=== PATIENT | female | born 1990 | race Caucasian/White ===

== ENCOUNTER 2021-06-05 21:36 | Emergency (ER) | payer BC ==
--- OUTSIDE RECORDS SUMMARY | 2021-06-05 21:38 | XMS REPORT | Continuity of Care Document ---
:1990 Author Organization [facility] Address [address] [place] [address] [address] [place] [address] Care Team Providers Name Role Phone MYLES Attending Clinician Unavailable Problems This patient has no known problems. Allergies, Adverse Reactions, Alerts This patient has no known allergies or adverse reactions. Medications This patient has no known medications. Procedures This patient has no known procedures. Encounters Start End Encounter Admission Attending Care Care Encounter Source Date/Time Date/Time Type Type Clinicians Facility Department ID 2019-07-11 2019-07-11 Outpatient [facility] [id number] [address] [place] 00:00:00 00:00:00 [place] [address] 2019-07-09 2019-07-09 Outpatient [facility] [id number] [place] 00:00:00 00:00:00 [place] [address] 2019-07-09 2019-07-09 Outpatient [facility] [id number] [place] 00:00:00 00:00:00 [place] [address] 2019-06-25 2019-06-25 Outpatient [facility] [id number] [place] 00:00:00 00:00:00 [place] [address] 2019-06-25 2019-06-25 Outpatient [facility] [id number] [place] 00:00:00 00:00:00 [place] [address] Results This patient has no known results.
--- NOTE | 2021-06-05 22:46 | ER ---
Nurse's Notes [facility] Name: Merline Gonzales Age: 31 yrs Sex: Female : 1990 Arrival Date: 06/05/2021 Time: 21:39 Bed 12 Private MD: Diagnosis: Sprain of unspecified ligament of left ankle Presentation: 06/05 21:54 Chief complaint: Patient states: "My kids were throwing punches and I took off running ab2 after them and I didnt see a hole in the yard and rolled my ankle." Pt c/o left ankle pain. Coronavirus screen: Vaccine status: Patient reports being unvaccinated. Client denies travel out of the [place] in the last 14 days. At this time, the client does not indicate any symptoms associated with coronavirus-19. Ebola Screen: Patient negative for fever greater than or equal to 101.5 degrees Fahrenheit, and additional compatible Ebola Virus Disease symptoms Patient denies exposure to infectious person. Patient denies travel to an Ebola-affected area in the 21 days before illness onset. No symptoms or risks identified at this time. Initial Sepsis Screen: Does the patient meet any 2 criteria? No. Patient's initial sepsis screen is negative. Does the patient have a suspected source of infection? No. Patient's initial sepsis screen is negative. Risk Assessment: Do you want to hurt yourself or someone else? Patient reports no desire to harm self or others. Onset of symptoms is unknown. 21:54 Method Of Arrival: Wheelchair ab2 21:54 Acuity: ROBE 4 ab2 Triage Assessment: 21:56 General: Appears in no apparent distress. uncomfortable, Behavior is calm, cooperative, ab2 appropriate for age. Pain: Complains of pain in left lateral ankle Pain currently is 9 out of 10 on a pain scale. Neuro: Level of Consciousness is awake, alert, obeys commands, Oriented to person, place, time, situation, Appropriate for age Vault Custodian are equal bilaterally Moves all extremities. Speech is normal. Cardiovascular: No deficits noted. Denies chest pain, shortness of breath, Patient's skin is warm and dry. Respiratory: Airway is patent Respiratory effort is even, unlabored, Respiratory pattern is regular, symmetrical. GI: No deficits noted. No signs and/or symptoms were reported involving the gastrointestinal system. Musculoskeletal: Reports pain in left foot and left lateral ankle. Injury Description: Pt stepped in a hole and rolled her ankle. Historical: - Allergies: 21:56 PENICILLINS; ab2 - PMHx: 21:56 None; ab2 - PSHx: 21:56 None; ab2 - Immunization history:: Adult Immunizations up to date. - Social history:: Smoking status: Patient denies any tobacco usage or history of. Screenin:57 Abuse screen: Denies threats or abuse. Denies injuries from another. Nutritional ab2 screening: No deficits noted. Tuberculosis screening: No symptoms or risk factors identified. Fall Risk None identified. Assessment: 22:40 General: Appears in no apparent distress. Behavior is appropriate for age. Pain: lp1 Complains of pain in left lateral ankle Pain currently is 6 out of 10 on a pain scale. Quality of pain is described as aching. Neuro: Level of Consciousness is awake, alert, obeys commands. Cardiovascular: Patient's skin is warm and dry. Respiratory: Respiratory effort is even, unlabored. GI: No signs and/or symptoms were reported involving the gastrointestinal system. : No signs and/or symptoms were reported regarding the genitourinary system. EENT: No signs and/or symptoms were reported regarding the EENT system. Derm: Skin is pink, warm \\T\\ dry. Musculoskeletal: Circulation, motion, and sensation intact. Range of motion: limited in left ankle. 23:20 Reassessment: Splint assessed by Santhosh Orozco NP. lp1 Vital Signs: 21:54 BP 138 / 96; Pulse 88; Resp 16; Temp 97.7(TE); Pulse Ox 99% on R/A; Weight 49.9 kg; ab2 Height 5 ft. 2 in. (157.48 cm); Pain 9/10; 21:54 Body Mass Index 20.12 (49.90 kg, 157.48 cm) ab2 ED Course: 21:39 Patient arrived in ED. jj6 21:49 Santhosh Orozco NP is PHCP. pm1 21:49 Aniceto Cosme DO is Attending Physician. pm1 21:56 Triage completed. ab2 21:57 Arm band placed on right wrist. ab2 22:24 XRAY Ankle LEFT 3 view In Process Unspecified. EDMS 22:40 Naomi Dominguez, RN is Primary Nurse. lp1 22:40 Patient did not have IV access during this emergency room visit. lp1 22:41 Patient has correct armband on for positive identification. lp1 23:20 No provider procedures requiring assistance completed. lp1 Administered Medications: No medications were administered Outcome: 22:45 Discharge ordered by MD. pm1 23:15 Discharged to home via wheelchair, with significant other. lp1 23:15 Condition: good 23:15 Discharge instructions given to patient, Instructed on discharge instructions, follow up and referral plans. Demonstrated understanding of instructions, follow-up care, splint care. 23:29 Patient left the ED. lp1 Signatures: Dispatcher [employer] EDMS Naomi Dominguez, RN RN lp1 Santhosh Orozco, [employer]ATION MANAGER pm1 Poppy [id number] Carloz Perez
--- NOTE | 2021-06-05 22:46 | EDPHYS ---
Physician Documentation [facility] Name: Merline Gonzales Age: 31 yrs Sex: Female : 1990 Arrival Date: 06/05/2021 Time: 21:39 Bed 12 Private MD: ED Physician Aniceto Cosme HPI: 06/05 22:04 This 31 yrs old Female presents to ER via Wheelchair with complaints of Ankle Injury, pm1 Ankle Swelling. 22:04 The patient presents with pain, that is acute. The complaints affect the left ankle. pm1 Onset: The symptoms/episode began/occurred just prior to arrival. Context: The problem was sustained outdoors, resulted from Stepping in hole. Associated signs and symptoms: Pertinent positives: swelling, Pertinent negatives: numbness, tingling. Modifying factors: The symptoms are alleviated by elevation of extremity, the symptoms are aggravated by weight bearing, movement. Severity of symptoms: in the emergency department the symptoms are unchanged, patient took hydrocodone at home. The patient has not experienced similar symptoms in the past. The patient has not recently seen a physician. Historical: - Allergies: 21:56 PENICILLINS; ab2 - PMHx: 21:56 None; ab2 - PSHx: 21:56 None; ab2 - Immunization history:: Adult Immunizations up to date. - Social history:: Smoking status: Patient denies any tobacco usage or history of. ROS: 22:04 Constitutional: Negative for fever, chills, and weight loss, Cardiovascular: Negative pm1 for chest pain, palpitations, and edema, Respiratory: Negative for shortness of breath, cough, wheezing, and pleuritic chest pain. 22:04 Skin: Negative for injury, rash, and discoloration, Neuro: Negative for headache, weakness, numbness, tingling, and seizure. 22:04 MS/extremity: Positive for pain, swelling, tenderness, of the left lateral ankle. 22:04 All other systems are negative. Exam: 22:04 Constitutional: This is a well developed, well nourished patient who is awake, alert, pm1 and in no acute distress. Head/Face: Normocephalic, atraumatic. 22:04 Skin: Warm, dry with normal turgor. Normal color with no rashes, no lesions, and no evidence of cellulitis. 22:04 Cardiovascular: Exam negative for acute changes, Rate: normal, Rhythm: regular, Pulses: no pulse deficits are appreciated. 22:04 Respiratory: Exam negative for acute changes, respiratory distress, shortness of breath, Breath sounds: are clear throughout. 22:04 Musculoskeletal/extremity: Extremities: grossly normal except: noted in the left lateral ankle: swelling, tenderness, There is no evidence of deformity, Circulation is intact in all extremities. Pulses: noted to be 2+ in the left dorsalis pedis artery, the left foot Vital Signs: 21:54 BP 138 / 96; Pulse 88; Resp 16; Temp 97.7(TE); Pulse Ox 99% on R/A; Weight 49.9 kg; ab2 Height 5 ft. 2 in. (157.48 cm); Pain 9/10; 21:54 Body Mass Index 20.12 (49.90 kg, 157.48 cm) ab2 MDM: 22:09 Patient medically screened. pm1 22:45 Data reviewed: vital signs. Data interpreted: Pulse oximetry: on room air is 99 %. pm1 Interpretation: normal. Counseling: I had a detailed discussion with the patient and/or guardian regarding: the historical points, exam findings, and any diagnostic results supporting the discharge/admit diagnosis, radiology results, the need for outpatient follow up, a orthopedic surgeon, to return to the emergency department if symptoms worsen or persist or if there are any questions or concerns that arise at home. 22:47 ED course: No pain prescription discharged with the patient because she has multiple pm1 pills of Kimper at home from prior surgery. Patient recently reports right shoulder surgery and took Kimper for her pain today prior to arrival. 06/05 22:00 Order name: XRAY Ankle LEFT 3 view ab2 06/05 22:45 Order name: Splint - Ankle: Orthoglass: Stirrup; Complete Time: 23:05 pm1 Administered Medications: No medications were administered Disposition: 06/06 06:12 Co-signature as Attending Physician, Aniceto BONNER was immediately available on-site ms3 in the Emergency Department for consultation in the care of the patient.. Disposition Summary: 06/05/21 22:45 Discharge Ordered Location: Home pm1 Problem: new pm1 Symptoms: have improved pm1 Condition: Stable pm1 Diagnosis - Sprain of unspecified ligament of left ankle pm1 Followup: pm1 - With: Emergency Department - When: As needed - Reason: Worsening of condition Followup: pm1 - With: Private Physician - When: 2 - 3 days - Reason: Recheck today's complaints, Continuance of care, Re-evaluation by your physician Discharge Instructions: - Discharge Summary Sheet pm1 - Ankle Sprain pm1 - Cast or Splint Care, Adult pm1 - Crutch Use, Adult pm1 Forms: - Medication Reconciliation Form pm1 - Thank You Letter pm1 - Antibiotic Education pm1 - Prescription Opioid Use pm1 Signatures: Dispatcher [employer] EDMS Santhosh Orozco, TANK OPERATOR TANK OPERATOR pm1 Aniceto Cosme DO DO ms3 Carloz Perez ab2
[2021-06-06 01:28] VITALS: BP 138/96; TEMP 97.7; O2SAT 99
--- NOTE | 2021-06-07 14:03 | RAD REPORT ---
EXAM DESCRIPTION: RAD - Ankle Left 3 View - 06/05/2021 10:22 pm CLINICAL HISTORY: Pain. COMPARISON: None. TECHNIQUE: AP, lateral and oblique views of the left ankle. FINDINGS: Mild lateral left ankle soft tissue swelling. No fracture. No effusion. No dislocation. In tact ankle mortise and talar dome. Normal bone mineralization. Midfoot and imaged forefoot appear nor mal. No foreign body or subcutaneous edema. IMPRESSION: Lateral left ankle soft tissue swelling. No acute bony abnormality. Electronically signed by: Brittany Barksdale DO 06/05/2021 10:34 PM CDT Due to temporary technical issues with the PACS/Fluency reporting system, reports are being signed by the in house radiologist without review as a courtesy to ensure prompt reporting. The interpreting r adiologist is fully responsible for the content of the report.
== END 2021-06-05 23:29 | disposition home or self-care (01) ==
LOC: ER 21:36
DX: S93.402A Sprain of unspecified ligament of left ankle, initial encounter (principal); X50.1XXA Overexertion from prolonged static or awkward postures, initial encounter; Y93.02 Activity, running; Y92.017 Garden or yard in single-family (private) house as the place of occurrence of the external cause; Z88.0 Allergy status to penicillin
CPT/HCPCS: 99283